=== PATIENT | female | born 1995 | race Hispanic/Latino ===

== ENCOUNTER 2018-06-22 10:43 | Outpatient (CLI) | payer OTHER ==
--- NOTE | 2018-06-22 12:08 | ULT ---
PELVIC ULTRASOUND: HISTORY: First trimester . Evaluation is requested. Low risk . Evaluate size and dates. TECHNIQUE: Sagittal and transverse imaging of the gravid uterus is performed. FINDINGS: Limited evaluation of the cervix due to shadowing. The uterus is identified, measuring 7.3 x 10.2 x 12.8 cm. Possible small subchorionic hemorrhage. Gestational age by crown-rump length is 4 cm, corresponding to a gestational age of 11 weeks 0 days. heart tones with a rate of 155 beats per minute. The left ovary has a normal echotexture, measuring 3 x 1.2 x 1.2 cm. The right ovary is not appreciated. No obvious masses or fluid in the right adnexa. On ovarian Doppler, there is vascular flow to the left ovary. IMPRESSION: 1. Single intrauterine gestation with heart tones. 2. Gestational age by crown-rump length is 11 weeks 0 days. 3. There are heart tones with a rate of 155 beats per minute. 4. Possible small subchorionic hemorrhage. POS: [facility]
== END 2018-06-22 10:44 | disposition home or self-care (01) ==
LOC: BICULT 10:43
PROVIDERS: ATTEND Obstetrics & Gynecology
DX: Z34.01 Encounter for supervision of normal first pregnancy, first trimester (principal); Z3A.11 11 weeks gestation of pregnancy
CPT/HCPCS: 76856; 93976

== ENCOUNTER 2018-07-31 21:04 | Emergency (ER) | payer OTHER ==
[2018-07-31 21:53] LABS: #Eosinphils 0.1 thou/uL (0.0-0.7); #Lymphocytes 2.5 thou/uL (1.20-3.40); #Neutrophils 13.7 thou/uL (1.40-6.50); %Basophils 0.1 % (0.0-1.0); %Eosinophils 0.6 % (0.0-10.0); %Lymphocytes 14.3 % (21.0-51.0); %Monocytes 5.5 % (0.0-10.0); %Neutrophils 79.5 % (42.0-75.0); Hemoglobin 12.6 g/dL (12.0-16.0); Mean Corpuscular HGB CONC 32.6 g/dL (32.0-36.0); Mean Corpuscular Hemoglobin 27.5 pg (27.0-31.0); Mean Corpuscular Volume 84.5 fL (78.0-98.0); Mean Platelet Volume 8.2 fL (7.4-10.4); Platelet Count 276 thou/uL (130-400); RBC Distribution Width 12.5 % (11.5-14.5); Red Blood Cell (RBC) Count 4.57 mill/uL (4.20-5.40); White Blood Cell (WBC) Count 17.3 thou/uL (4.8-10.8)
[2018-07-31 22:04] LABS: Bilirubin Negative (Negative); Blood, Urine Large (Negative); Clarity CLOUDY (Clear); Glucose, Urine (Dipstick) Negative (Negative); Leukocyte Large (Negative); Nitrite Negative (Negative); Protein, Urine (Dipstick) Negative (Neg-Trace); Specific Gravity, Urine 1.006 (1.002-1.036); Urobilinogen 0.2 mg/dL (0.2-1.0)
[2018-07-31 22:06] LABS: Hyaline Casts/LPF 4-6 HYALINE CAST LPF (0-3 Hyaline); Pathc Cast-AUWi Flag 0.95 (0-2.49); RBC/HPF GREATER THAN 50-TNTC HPF (0-3); Squamous Epithelial None Seen HPF (0-3)
[2018-07-31 22:09] LABS: Yeast-AUWi Flag 134.3 (0-25.0)
[2018-07-31 22:15] LABS: ALT (SGPT) 17 U/L (8-55); AST (SGOT) 18 U/L (5-34); Albumin 3.8 g/dL (3.5-5.0); Alkaline Phosphatase 50 U/L (40-150); Anion Gap 11 mmol/L (10-20); BUN (Urea Nitrogen) 8 mg/dL (7.0-18.7); Bilirubin, Total 0.3 mg/dL (0.2-1.2); Calc. Creatinine Clearance 0 mL/min (70-130); Calcium 9.6 mg/dL (7.8-10.44); Carbon Dioxide 25 mmol/L (22-29); Chloride 105 mmol/L (98-107); Estimated GFR-MDRD Greater than 90; Globulin 3.6 g/dL (2.4-3.5); Glucose 77 mg/dL (70-105); Potassium 3.6 mmol/L (3.5-5.1); Protein, Total 7.4 g/dL (6.0-8.3); Sodium 137 mmol/L (136-145)
[2018-07-31 22:18] LABS: Bacteria/HPF Rare-Few HPF (None Seen)
--- NOTE | 2018-07-31 23:30 | ULT ---
OBSTETRICAL ULTRASOUND: 07/31/2018 HISTORY: A 22-year-old female with left-sided pelvic pain. COMPARISON: None. TECHNIQUE: Multiplanar hobbs-scale sonographic imaging of the gravid uterus obtained. FINDINGS: Cervical length is approximately 5 cm. A single intrauterine gestation is present, with a breech pre sentation. heart rate is 139 beats per minute. Umbilical cord insertion and spine appear grossly unremarkable, as does the urinary bladd er and kidneys. No evidence for placenta previa. anatomy is not fully evaluated on this examination. Amniotic fluid volume appears qualitativel y normal. There are two areas of nonspecific heterogeneous decreased echogenicity along the left lateral and ri ght lateral margins of the placenta, which extend from the fungus to the lower uterine segment, etiol ogy uncertain. On the left, this finding measures 7.8 cm in length and 1.5 cm in transverse dimensio n. On the right, it measures 2.4 x 0.8 cm. BIOMETRY: BPD: 3.7 cm (17 weeks 1 day). HC: 12.0 cm (16 weeks 4 days). AC: 10.8 cm (16 weeks 5 days). FL: 2.0 cm (16 weeks 0 days). Average age based on ultrasound is 16 weeks 4 days, with estimated date of delivery of 01/11/2019. E stimated weight is 155 g, plus or minus 23 g. IMPRESSION: A single live intrauterine gestation, as detailed above. There are two fairly linear areas of heterogeneous decreased echogenicity along the left lateral and right lateral margin of the placenta. The retroplacental region appears unremarkable. The etiology of these findings is uncertain. Peripheral placental lakes is favored. Marginal placental hemorrhag e cannot be fully excluded in the proper clinical setting, but is felt much less likely. Followup im aging is suggested, to document stability and/or resolution. POS: [facility]
== END 2018-07-31 23:48 | disposition home or self-care (01) ==
LOC: ERS 21:04
DX: O23.42 Unspecified infection of urinary tract in pregnancy, second trimester (principal); Z3A.16 16 weeks gestation of pregnancy
CPT/HCPCS: 36415; 76815; 80053; 81003; 81015; 84702; 85025; 87077; 87086; 87186

== ENCOUNTER 2018-09-09 09:46 | Outpatient (CLI) | payer OTHER ==
--- NOTE | 2018-09-09 12:36 | ULT ---
OB ULTRASOUND: HISTORY: Followup of placental abnormalities. Evaluation for size and dates. FINDINGS: Rela-time imaging of the pelvis shows a single viable intrauterine in a breech presentation . Placenta is anterior in location. On the previous examination along the right and left lateral ma rgins of the placenta were some heterogeneous areas of decreased echogenicity. One of these areas is still visualized. It is now more hypoechoic in appearance. It measured approximately 8 x 24 mm on the prior examination. It now measures approximately 1.5 x 2.5 cm in size. The 2nd area of decrease d echogenicity which was seen more on the left side is also felt to be present. It is also more hypo echoic being more cystic in appearance on this exam. It measured 1.4 x 7.8 cm in size. This density appears less prominent and difficult to compare measurements when compared to the prior study. The more oblong-shaped component of this has largely resolved, although the more peripheral component is similar in size and more hypoechoic. heart rate is 136 b.p.m. Review of anatomy shows normal anatomy demonstrating the head, cerebellum, 4-chamber heart, stomach, kidneys, cord insertion, bladder, extremities, and 3-vess el cord were all identified. Due to position, it is difficult to evaluate the cervical canal length on this examination. It appea rs to be in the 3 cm range. measurements are as follows: BPD 5.3 cm, 22 weeks 1 day Head circumference: 20.6 cm, 22 weeks 5 days Abdominal circumference: 16.9 cm, 22 weeks 0 days Femur length 3.9 cm, 22 weeks 6 days IMPRESSION: 1. Single viable intrauterine in the breech presentation, overall measurements correspondi ng to a gestational age of 22 weeks 3 days. Estimated date of delivery 01/10/2019. 2. Placenta which is anterior in location. There are 2 marginal cystic areas seen, one of which emre ears decreased in size, other minimally increased in size, both of which have become more hypoechoic as compared to the prior exam. I still think these could represent some placental lakes along the ma rgins of the placenta. It could indicate resolving hematoma given the change in echogenicity. Addit ional followup may be helpful in reassessment. POS: [facility]
== END 2018-09-09 09:47 | disposition home or self-care (01) ==
LOC: BICULT 09:46
PROVIDERS: ATTEND Obstetrics & Gynecology
DX: Z34.82 Encounter for supervision of other normal pregnancy, second trimester (principal); Z3A.22 22 weeks gestation of pregnancy
CPT/HCPCS: 76805

== ENCOUNTER 2018-12-02 13:40 | Outpatient (CLI) | payer OTHER ==
--- NOTE | 2018-12-02 14:39 | ULT ---
OB ULTRASOUND: HISTORY: Follow-up FINDINGS: A single live intrauterine gestation is seen with measurements corresponding to an estimated gestatio nal age of 35 weeks 1 day and NEGRITO at 01/05/2019. The estimated weight measures 2686 g or 5 lbs. 15 oz. This corresponds to the 79th percentile by Hadlock criteria. biometry: BPD: 8.43 cm, 34 weeks 0 days HC 31.49 cm, 35 weeks 3 days AC: 22.13 cm, 36 weeks 1 day FL 6.81 cm, 35 weeks 0 days heart rate measures 167 bpm. Placenta is anteriorly located without evidence of placenta previa . ABDIEL measures 10.3 cm. IMPRESSION: Single live IUP of 35 weeks 1 day estimated gestational age and NEGRITO at 01/05/2019.
== END 2018-12-02 13:41 | disposition home or self-care (01) ==
LOC: BICULT 13:40
DX: Z34.83 Encounter for supervision of other normal pregnancy, third trimester (principal); Z3A.35 35 weeks gestation of pregnancy
CPT/HCPCS: 76816

== ENCOUNTER 2018-12-29 01:14 | Inpatient (IN) | payer OTHER, SELFPAY ==
[2018-12-29 01:58] VITALS: BMI 34.7
[2018-12-29 02:23] LABS: Amnisure Internal Control QC ACCEPTABLE (ACCEPTABLE)
[2018-12-29 02:29] LABS: Amnisure Test RUPTURE DETECTED (No Rupture)
[2018-12-29] MEDS ORDERED: Penicillin G Potassium 5 MILL.UNITS VIAL ONE (03:22)
[2018-12-29] MEDS ORDERED: Ondansetron PF 4 MG/2 ML Vial IVP PRN ×2 (03:34→12:36)
[2018-12-29] MEDS ORDERED: Lidocaine 1% (PF) 30 ML VIAL SC PRN (03:34)
[2018-12-29] MEDS ORDERED: Acetaminophen/Codeine 30-300mg Tablet PO PRN ×4 (03:34→12:36)
[2018-12-29] MEDS ORDERED: Ibuprofen 800 MG TAB PO PRN (03:34)
[2018-12-29] MEDS ORDERED: Butorphanol Tartrate 1 MG/ML VIAL SLOW IVP PRN (03:34)
[2018-12-29] MEDS ORDERED: NS / Oxytocin 40 units/1000ml 1,000 ML IV PRN (03:34)
[2018-12-29] MEDS ORDERED: hydrALAZINE 20 MG/ML VIAL SLOW IVP PRN ×2 (03:34→12:36)
[2018-12-29] MEDS ORDERED: Lactated Ringer's 1,000 ML IV SCH (03:45)
[2018-12-29] MEDS ORDERED: Penicillin G Potassium 5 MILL.UNITS in Sodium Chloride 0.9% 100 ML IVPB SCH (03:45)
[2018-12-29] MEDS ORDERED: NS w/ Oxytocin 10 units 500 ML IV SCH (03:45)
[2018-12-29 04:07] LABS: Hemoglobin 12.2 g/dL (12.0-16.0); Mean Corpuscular Hemoglobin 27.7 pg (27.0-31.0); Mean Corpuscular Volume 81.5 fL (78.0-98.0); Mean Platelet Volume 9.5 fL (7.4-10.4); Platelet Count 256 thou/uL (130-400); RBC Distribution Width 13.3 % (11.5-14.5); Red Blood Cell (RBC) Count 4.42 mill/uL (4.20-5.40); White Blood Cell (WBC) Count 8.4 thou/uL (4.8-10.8)
[2018-12-29 04:57] LABS: HBSAg Index 0.26 S/CO (0-0.99); Hep B Surf Ag Non-Reactive S/CO (NonReactive)
[2018-12-29] MEDS: Lactated Ringer's 1,000 ML IV SCH (06:09)
[2018-12-29 07:04] LABS: Syphilis Antibody Nonreactive (Nonreactive); Syphilis Antibody Index 0.04 S/CO (<1.00 Non-Reactive)
[2018-12-29] MEDS: Penicillin G 2.5 MILL.units 2.5 MILL.UNITS in Premix Bag 1 BAG IVPB SCH ×2 (07:59→11:26)
[2018-12-29] MEDS ORDERED: Bisacodyl 10 MG SUPP PR PRN (12:36)
[2018-12-29] MEDS ORDERED: Lanolin Ointment 7 GM TUBE TOP PRN (12:36)
[2018-12-29] MEDS ORDERED: Milk Of Magnesia 30 ML UDCUP PO PRN (12:36)
[2018-12-29] MEDS ORDERED: Adacel (T-DAP) 0.5 ML SYRINGE IM ONE (12:36)
[2018-12-29] MEDS ORDERED: NS / Oxytocin 40 units/1000ml 1,000 ML IV SCH (12:45)
[2018-12-29] MEDS: Ibuprofen 800 MG TAB PO SCH ×2 (14:13→21:13)
[2018-12-29] MEDS: Docusate Calcium (SURFAK) 240 MG CAP PO SCH (21:13)
[2018-12-30] MEDS: Ibuprofen 800 MG TAB PO SCH ×2 (05:33→13:49)
[2018-12-30] MEDS: Ferrous Sulfate 325 MG TAB PO SCH ×3 (06:37→14:10)
[2018-12-30] MEDS: Lactated Ringer's 1,000 ML IV SCH (07:45)
[2018-12-30] MEDS: Penicillin G 2.5 MILL.units 2.5 MILL.UNITS in Premix Bag 1 BAG IVPB SCH (07:45)
[2018-12-30 08:18] VITALS: BP 114/59; TEMP 97.8
[2018-12-30] MEDS: Docusate Calcium (SURFAK) 240 MG CAP PO SCH (08:53)
[2018-12-30] MEDS ORDERED: Prenatal Vitamin 1 TAB PO SCH (09:00)
--- NOTE | 2018-12-30 12:43 | DN ---
DATE OF PROCEDURE: 12/29/2018 PREOPERATIVE DIAGNOSES: 1. A 23-year-old G2, P1, at 37 weeks and 2 days with spontaneous rupture of membranes at approximately 11:50 p.m., the night prior. 2. Group B Streptococcus positive. 3. Augmentation of labor. POSTOPERATIVE DIAGNOSES: 1. A 23-year-old G2, P1, at 37 weeks and 2 days with spontaneous rupture of membranes at approximately 11:50 p.m., the night prior. 2. Group B Streptococcus positive. 3. Augmentation of labor. 4. Live born female with Apgars of 8 and 9 at 1 and 5 minutes respectively, weighing 7 pounds 7 ounces or 3384 g. PROCEDURE PERFORMED: Spontaneous vaginal delivery. ANESTHESIA: None. ESTIMATED BLOOD LOSS: 100 mL. QUANTITATIVE BLOOD LOSS: 82 mL. SPECIAL MEDICATIONS: Penicillin for a group B strep status x3 doses. CLINICAL HISTORY: This patient is a 23-year-old, G2, P1, who was followed at the [facility] for the entirety of her . She had an uneventful course and was noted to be GBS positive. On December 28, she had noted spontaneous rupture of membranes at approximately 1150 hours. She presented to the Labor and delivery and was ruled in and admitted. On original exam, she was noted to be only 30% effaced and so Pitocin was started. Antibiotics were started right away given her GBS positive status. The patient continued to progress. She did not request any medication for analgesia, and by noon, she was completely dilated and ready to push. DESCRIPTION OF PROCEDURE: With good maternal effort, she gave one push and delivered the head in the TAD position. The head was delivered, followed by the anterior shoulder, then the posterior shoulder, then the remainder of the infant's body. The baby cried spontaneously with a vigorous cry. The cords were doubly clamped and cut, and the infant was placed on the maternal abdomen for continued stimulation. The placenta was then delivered spontaneously intact with a 3-vessel cord. There was a peripheral insertion to the placenta, but otherwise no abnormalities were noted. The placenta was discarded as medical waste. Exploration of the vagina, introitus, and cervix noted no lacerations. The uterus was firm and well below the umbilicus at the end of the procedure with uterine massage, and the patient was sent to the recovery position with her infant. Again, the infant was a live born female weighing 7 pounds 7 ounces or 3384 g with Apgars of 8 and 9 at 1 and 5 minutes respectively. All needle, sponge, lap, and instrument counts were correct x2 at the end of the procedure. There were no other issues surrounding this delivery. Job ID: [id number]
== END 2018-12-30 18:45 | disposition home or self-care (01) | DRG 807 ==
LOC: L&D/OP 01:14 → L&D 03:19 → 3SW 13:25
PROVIDERS: ADMIT Obstetrics & Gynecology; ATTEND Obstetrics & Gynecology
PROC: 10E0XZZ Delivery of Products of Conception, External Approach (ICD-10-PCS; principal; 2018-12-30)
DX: O42.92 Full-term premature rupture of membranes, unspecified as to length of time between rupture and onset of labor (principal); Z37.0 Single live birth; Z3A.37 37 weeks gestation of pregnancy; O99.824 Streptococcus B carrier state complicating childbirth
CPT/HCPCS: 36415; 84112; 85027; 86780; 86850; 86900; 86901; 87340; 99285; J2001; J2540; J2590